=== PATIENT | female | born 1980 | race Caucasian/White ===

== ENCOUNTER 2024-02-21 14:56 | Emergency (ER) | payer OTHER ==
[2024-02-21] MEDS ORDERED: DICYCLOMINE HCL 20 MG/2 ML AMP IM ONE (15:57)
[2024-02-21] MEDS ORDERED: ONDANSETRON 4 MG/2 ML VIAL ONE (15:57)
[2024-02-21] MEDS ORDERED: NA CHLORIDE 0.9% 1,000 ML ONE (15:57)
[2024-02-21 16:48] LABS: Absolute Eosinophils 0.1 K/uL (0-0.5); Absolute Lymphocytes (CBC) 2.1 K/uL (0.7-4.9); Absolute Monocytes 0.6 K/uL (0.1-1.3); Absolute Neutrophil 4.4 K/uL (1.8-8.0); Basophils % 0.4 % (0-1.3); Eosinophils % 1.7 % (0-4.4); Hematocrit 33.9 % (36.0-45.0); Hemoglobin 11.5 g/dL (12.0-15.0); Lymphocytes % 28.5 % (15.3-44.8); MPV 8.2 fL (7.6-11.3); Monocytes % 8.6 % (3.3-12.3); Neutrophils % 60.8 % (41.7-73.7); Nucleated Red Blood Cells % 0.2 % (0-0); Platelets 255 thou/uL (152-406); RBC Red Blood Cell Count 3.49 M/uL (3.86-4.86)
[2024-02-21 17:00] LABS: ALT/SGPT 18 U/L (13-56); Albumin 3.7 g/dL (3.4-5.0); Albumin/Globulin Ratio 1.1 (1.1-1.8); Alkaline Phosphatase 69 U/L (45-117); Anion Gap 5.8 mEq/L (5.0-15.0); BUN Blood Urea Nitrogen 9 mg/dL (7-18); Bicarbonate 26 mEq/L (21-32); Bilirubin Total 0.2 mg/dL (0.2-1.0); Globulin 3.5 g/dL (2.3-3.5); Glomerular Filtration Rate 113 ml/min (=/>90); Glucose Level 94 mg/dL (74-106); Lipase 35 U/L (13-75); Potassium 3.8 mEq/L (3.5-5.1); Protein, Total 7.2 g/dL (6.4-8.2); Sodium Level 135 mEq/L (136-145)
[2024-02-21 17:01] LABS: AST/SGOT < 10 U/L (15-37)
[2024-02-21 17:07] LABS: Specific Gravity 1.011 (1.005-1.030); Sqamous Epithelial <5 /HPF (None Seen); Urine Bacteria <20 /HPF (<20); Urine Bilirubin NEGATIVE (Negative); Urine Blood Trace (Negative); Urine Clarity Clear (Clear); Urine Color Colorless (Yellow); Urine Crystals Unidentified Few /HPF (None Seen); Urine Culture Reflex Order NOT NEEDED; Urine Glucose NEGATIVE (Negative); Urine Ketones NEGATIVE (Negative); Urine Microscopic Reflex YN ORDER UMIC; Urine Mucus Slight /HPF (None Seen); Urine Nitrite NEGATIVE (Negative); Urine Protein NEGATIVE (Negative); Urine RBC <5 /HPF (None Seen); Urine Urobilinogen Normal (Normal); Urine WBC <5 /HPF (<5); Urine Yeast (Budding) Trace /HPF (None Seen)
[2024-02-21 17:08] LABS: Specific Gravity 1.011 (1.005-1.030)
[2024-02-21] MEDS ORDERED: MORPHINE 4 MG/ML SYR ONE (17:10)
--- NOTE | 2024-02-21 17:47 | RAD REPORT ---
EXAM DESCRIPTION: CT - Abdomen Pelvis W Contrast - 02/21/2024 5:33 pm CLINICAL HISTORY: Abdominal pain COMPARISON: none. TECHNIQUE: Computed axial tomography of the abdomen pelvis was obtained. 100 cc Isovue-300 was admin istered intravenously. Oral contrast was not requested which limits evaluation of bowel and appendix All CT scans are performed using dose optimization technique as appropriate and may include automated exposure control or mA/KV adjustment according to patient size. FINDINGS: The liver, spleen, pancreas, adrenal and kidneys appear unremarkable. There is no evidence of diverticulitis. 6.7 centimeter mass right adnexal contains fat, tiny amount of calcium and fluid compatible with a de rmoid. Small amount of free fluid 3.5 centimeter left ovarian cyst. No followup imaging recommended IMPRESSION: 6.7 centimeter right adnexal dermoid
--- NOTE | 2024-02-21 18:35 | ER ---
Nurse's Notes [facility] Name: Kavitha Nguyen Age: 43 yrs Sex: Female : 1980 Arrival Date: 02/21/2024 Time: 14:56 Bed 13 Private MD: Diagnosis: Other ovarian cysts;Dermoid Presentation: 02/20 15:09 Chief complaint: Patient states: she started having left sided abdominal pain yesterday ap3 after eating cabbage cooked with justin. patient currently rates her pain as a 5/10. patient also reports nausea and vomiting that started this morning. Coronavirus screen: At this time, the client does not indicate any symptoms associated with coronavirus-19. Ebola Screen: No symptoms or risks identified at this time. Initial Sepsis Screen: Does the patient meet any 2 criteria? No. Patient's initial sepsis screen is negative. Does the patient have a suspected source of infection? No. Patient's initial sepsis screen is negative. Risk Assessment: Do you want to hurt yourself or someone else? Patient reports no desire to harm self or others. Onset of symptoms was February 20, 2024. 15:09 Method Of Arrival: Ambulatory ap3 15:09 Acuity: JAZMYN 3 ap3 Triage Assessment: 15:11 General: Appears in no apparent distress. Behavior is calm, cooperative, appropriate ap3 for age. Pain: Complains of pain in abdomen Pain currently is 5 out of 10 on a pain scale. Neuro: Level of Consciousness is awake, alert, obeys commands, Oriented to person, place, time, situation, Appropriate for age. Cardiovascular: Patient's skin is warm and dry. Respiratory: Airway is patent Respiratory effort is even, unlabored, Respiratory pattern is regular, symmetrical. GI: Reports lower abdominal pain, upper abdominal pain, nausea, vomiting. Historical: - Allergies: 15:11 No Known Allergies; ap3 - PMHx: 15:11 Anxiety; Depressive disorder; ap3 - Immunization history:: Client reports receiving the 2nd dose of the Covid vaccine. - Infectious Disease History:: Denies. - Social history:: Smoking status: Patient reports the use of cigarette tobacco products, smokes one-half pack cigarettes per day. - Family history:: not pertinent. Screenin:12 Abuse screen: Denies threats or abuse. Nutritional screening: No deficits noted. ap3 Tuberculosis screening: No symptoms or risk factors identified. 18:53 [facility] ED Fall Risk Assessment (Adult) History of falling in the last 3 months, db including since admission No falls in past 3 months (0 pts) Confusion or Disorientation No (0 pts) Intoxicated or Sedated No (0 pts) Impaired Gait No (0 pts) Mobility Assist Device Used No (0 pt) Altered Elimination No (0 pt) Score/Fall Risk Level 0 - 2 = Low Risk Oriented to surroundings, Maintained a safe environment. Assessment: 15:50 Reassessment: Patient appears in no apparent distress at this time. Patient and/or db family updated on plan of care and expected duration. Pain level reassessed. Patient is alert, oriented x 3, equal unlabored respirations, skin warm/dry/pink. General: Appears in no apparent distress. comfortable, Behavior is calm, cooperative. Pain: Complains of pain in abdomen. Neuro: Level of Consciousness is awake, alert, obeys commands, Oriented to person, place, time, situation. Respiratory: Airway is patent Respiratory effort is even, unlabored, Respiratory pattern is regular, symmetrical. GI: Bowel sounds present X 4 quads. Abd is soft in left upper quadrant and left lower quadrant. 17:15 Reassessment: Patient appears in no apparent distress at this time. PT REPORTS PAIN. db SEE MAR FOR MEDICATION ADMINISTRATION. Pain: Pain currently is 7 out of 10 on a pain scale. 18:00 Reassessment: Patient appears in no apparent distress at this time. Patient and/or db family updated on plan of care and expected duration. Pain level reassessed. Patient is alert, oriented x 3, equal unlabored respirations, skin warm/dry/pink. 18:50 Reassessment: Patient appears in no apparent distress at this time. Patient and/or db family updated on plan of care and expected duration. Pain level reassessed. Patient is alert, oriented x 3, equal unlabored respirations, skin warm/dry/pink. Patient states feeling better. Patient states symptoms have improved. Vital Signs: 15:09 BP 119 / 88; Pulse 75; Resp 17; Temp 98.4(O); Pulse Ox 100% ; Weight 68.04 kg; Height 5 ap3 ft. 8 in. ; Pain 5/10; 15:45 BP 111 / 78; Pulse 75; Resp 16; Pulse Ox 99% on R/A; db 16:15 BP 115 / 82; Pulse 72; Resp 16; Pulse Ox 100% on R/A; db 16:30 BP 118 / 80; Pulse 66; Resp 16; Pulse Ox 100% on R/A; db 17:00 BP 112 / 77; Pulse 66; Resp 18; Pulse Ox 100% ; db 18:00 BP 111 / 79; Pulse 64; Resp 18; Temp 98.2; Pulse Ox 100% on R/A; db 15:09 Body Mass Index 22.81 (68.04 kg, 172.72 cm) ap3 15:09 Pain Scale: Adult ap3 ED Course: 15:03 Patient arrived in ED. mg5 15:04 Esdras Santiago MD is Attending Physician. rt 15:11 Triage completed. ap3 15:12 Esdras Santiago MD is Attending Physician. rt 15:12 Arm band placed on right wrist. ap3 15:49 Bozena Mcintosh, MARIUM is Primary Nurse. db 15:50 Initial lab(s) drawn, by me, sent to lab. held in ED. Inserted saline lock: 22 gauge in db right antecubital area, using aseptic technique. Blood collected. Flushed with 10 mL NS. 17:17 Patient has correct armband on for positive identification. Bed in low position. Call db light in reach. Side rails up X 1. Pulse ox on. NIBP on. Warm blanket given. Pillow given. 17:[address] db 17:35 CT Abd/Pelvis - IV Contrast Only In Process Unspecified. EDMS 18:53 Provided Education on: DISCHARGE. db 18:53 No provider procedures requiring assistance completed. IV discontinued, intact, db bleeding controlled, No redness/swelling at site. Administered Medications: 16:15 Drug: NS 0.9% IV 1000 ml IV at 1 bolus Per protocol; 1000 mL bolus Route: IV; Rate: 1 db bolus; Site: right antecubital; 18:55 Follow up: Response: No adverse reaction; IV Status: Completed infusion; IV Intake: db 1000ml 16:15 Drug: Ondansetron IVP 4 mg IVP once; over 2 minutes Route: IVP; Site: right antecubital;db 17:08 Follow up: Response: No adverse reaction db 16:18 Drug: Dicyclomine IM 20 mg IM once Route: IM; Site: right deltoid; db 16:48 Follow up: Response: No adverse reaction; Pain is unchanged, physician notified db 17:10 Drug: morphine IVP or IV 4 mg IVP once over 4 mins Route: IVP; Infused Over: 4 mins; db Site: right antecubital; 18:40 Follow up: Response: No adverse reaction; Pain is decreased db Medication: 18:53 VIS not applicable for this client. db Intake: 18:55 IV: 1000ml; Total: 1000ml. db Outcome: 18:34 Discharge ordered by . rt 18:53 Discharged to home ambulatory, with family, db 18:53 Condition: stable 18:53 Discharge instructions given to patient, family, Instructed on discharge instructions, follow up and referral plans. Prescriptions given X 2, 18:55 Patient left the ED. db Signatures: Dispatcher [employer] EDMS Malgorzata Jimenez RN RN ap3 Bozena Mcintosh RN RN db Esdras Santiago MD MD rt Sayda Weeks mg5 Corrections: (The following items were deleted from the chart) 18:54 18:00 Reassessment: Patient appears in no apparent distress at this time. Patient db and/or family updated on plan of care and expected duration. Pain level reassessed. Patient is alert, oriented x 3, equal unlabored respirations, skin warm/dry/pink. Patient states feeling better. Patient states symptoms have improved. db 18:54 18:00 BP 111 / 79; Pulse 64bpm; Resp 18bpm; Pulse Ox 100% RA; db db
--- NOTE | 2024-02-21 18:35 | EDPHYS ---
Physician Documentation [facility] Name: Kavitha Nguyen Age: 43 yrs Sex: Female : 1980 Arrival Date: 02/21/2024 Time: 14:56 Bed 13 Private MD: ED Physician Esdras Santiago HPI: 02/20 19:36 This 43 yrs old Female presents to ER via Ambulatory with complaints of Abdominal Pain. rt 19:36 Patient presents to the ED for left lower quadrant pain starting last night. This rt happened after eating cabbage cooking justin. Reports nausea and vomiting. Denies other acute complaints at this time, symptoms are moderate in severity, no other aggravating or alleviating factors.. Historical: - Allergies: 15:11 No Known Allergies; ap3 - PMHx: 15:11 Anxiety; Depressive disorder; ap3 - Immunization history:: Client reports receiving the 2nd dose of the Covid vaccine. - Infectious Disease History:: Denies. - Social history:: Smoking status: Patient reports the use of cigarette tobacco products, smokes one-half pack cigarettes per day. - Family history:: not pertinent. ROS: 19:36 Constitutional: Negative for fever, chills, and weight loss, Cardiovascular: Negative rt for chest pain, palpitations, and edema, Respiratory: Negative for shortness of breath, cough, wheezing, and pleuritic chest pain, MS/Extremity: Negative for injury and deformity, Skin: Negative for injury, rash, and discoloration, Neuro: Negative for headache, weakness, numbness, tingling, and seizure, 19:36 Abdomen/GI: Positive for abdominal pain, nausea, Exam: 19:36 Constitutional: This is a well developed, well nourished patient who is awake, alert, rt and in no acute distress. Head/Face: Normocephalic, atraumatic. Chest/axilla: Normal chest wall appearance and motion. Nontender with no deformity. No lesions are appreciated. Cardiovascular: Regular rate and rhythm with a normal S1 and S2. No gallops, murmurs, or rubs. Normal PMI, no JVD. No pulse deficits. Respiratory: Lungs have equal breath sounds bilaterally, clear to auscultation and percussion. No rales, rhonchi or wheezes noted. No increased work of breathing, no retractions or nasal flaring. Skin: Warm, dry with normal turgor. Normal color with no rashes, no lesions, and no evidence of cellulitis. MS/ Extremity: Pulses equal, no cyanosis. Neurovascular intact. Full, normal range of motion. 19:36 Abdomen/GI: Tenderness to left lower quadrant without guarding, rebound, distention, Vital Signs: 15:09 BP 119 / 88; Pulse 75; Resp 17; Temp 98.4(O); Pulse Ox 100% ; Weight 68.04 kg; Height 5 ap3 ft. 8 in. ; Pain 5/10; 15:45 BP 111 / 78; Pulse 75; Resp 16; Pulse Ox 99% on R/A; db 16:15 BP 115 / 82; Pulse 72; Resp 16; Pulse Ox 100% on R/A; db 16:30 BP 118 / 80; Pulse 66; Resp 16; Pulse Ox 100% on R/A; db 17:00 BP 112 / 77; Pulse 66; Resp 18; Pulse Ox 100% ; db 18:00 BP 111 / 79; Pulse 64; Resp 18; Temp 98.2; Pulse Ox 100% on R/A; db 15:09 Body Mass Index 22.81 (68.04 kg, 172.72 cm) ap3 15:09 Pain Scale: Adult ap3 MDM: 15:12 Patient medically screened. rt 19:36 Differential Diagnosis UTI, Dany, kidney stone, ovarian cyst. Data reviewed: vital rt signs, nurses notes, lab test result(s), EKG, radiologic studies. I considered the following discharge prescriptions or medication management in the emergency department Medications were administered in the Emergency Department. See MAR. Independent interpretation of the following test(s) in the Emergency Department CT Scan: My interpretation is No ureteral stone seen on my interpretation of CT scan images. Test considered but Not performed: Ultrasound Low suspicion for ovarian torsion clinically, ultrasound indicated. Counseling: I had a detailed discussion with the patient and/or guardian regarding the historical points, exam findings, and any diagnostic results supporting the discharge/admit diagnosis, lab results, radiology results, the need for outpatient follow up, to return to the emergency department if symptoms worsen or persist or if there are any questions or concerns that arise at home, Discussed findings of dermoid and ovarian cyst with the patient, instructed her to follow-up as an outpatient with gynecology.. Response to treatment: the patient's symptoms have resolved after treatment. 02/20 15:24 Order name: CBC with Diff; Complete Time: 16:58 rt 02/20 15:24 Order name: CMP; Complete Time: 17:13 rt 02/20 15:24 Order name: Lipase; Complete Time: 17:13 rt 02/20 15:24 Order name: Test, Urine; Complete Time: 17:13 rt 02/20 15:24 Order name: Urinalysis w/ reflexes; Complete Time: 17:13 rt 02/20 15:24 Order name: CT Abd/Pelvis - IV Contrast Only; Complete Time: 17:51 rt 02/20 15:24 Order name: IV Saline Lock; Complete Time: 16:17 rt 02/20 15:24 Order name: Labs collected and sent; Complete Time: 16:17 rt Administered Medications: 16:15 Drug: NS 0.9% IV 1000 ml IV at 1 bolus Per protocol; 1000 mL bolus Route: IV; Rate: 1 db bolus; Site: right antecubital; 18:55 Follow up: Response: No adverse reaction; IV Status: Completed infusion; IV Intake: db 1000ml 16:15 Drug: Ondansetron IVP 4 mg IVP once; over 2 minutes Route: IVP; Site: right antecubital;db 17:08 Follow up: Response: No adverse reaction db 16:18 Drug: Dicyclomine IM 20 mg IM once Route: IM; Site: right deltoid; db 16:48 Follow up: Response: No adverse reaction; Pain is unchanged, physician notified db 17:10 Drug: morphine IVP or IV 4 mg IVP once over 4 mins Route: IVP; Infused Over: 4 mins; db Site: right antecubital; 18:40 Follow up: Response: No adverse reaction; Pain is decreased db Disposition Summary: 02/21/24 18:34 Discharge Ordered Notes: Location: Home rt Problem: new rt Symptoms: have improved rt Condition: Stable rt Diagnosis - Other ovarian cysts rt - Dermoid rt Followup: rt - With: Private Physician - When: 2 - 3 days - Reason: Discharge Instructions: - Discharge Summary Sheet rt - Ovarian Cyst rt Forms: - Medication Reconciliation Form rt - Antibiotic Education rt - Prescription Opioid Use rt - Patient Portal Instructions rt - Leadership Thank You Letter rt Prescriptions: - ondansetron 4 mg Oral Tablet,disintegrating - take 1 tablet ORAL route every 6 hours; 12 tablet; Refills: 0, Product rt Selection Permitted - Ultram 50 mg Oral Tablet - take 1 tablet ORAL route every 6 hours As needed; 12 tablet; Refills: 0, rt Product Selection Permitted Signatures: Dispatcher [employer] Malgorzata Wiseman RN RN ap3 Bozena Mcintosh RN RN db Esdras Santiago MD MD rt
[2024-02-21 19:16] VITALS: O2SAT 100
[2024-02-21 19:23] VITALS: BP 111/79; TEMP 98.2
== END 2024-02-21 18:55 | disposition home or self-care (01) ==
LOC: ER 14:56
DX: N83.292 Other ovarian cyst, left side (principal); D28.7 Benign neoplasm of other specified female genital organs; F17.210 Nicotine dependence, cigarettes, uncomplicated
CPT/HCPCS: 96361; 85025; 81001; 36415; 81025; 83690; 80053; 74177; 96375; 96372; 96374; 99285; Q9967; J0500; J2405; J7030